=== PATIENT | male | born 1995 | race Caucasian/White ===

== ENCOUNTER → 2016-05-28 | Outpatient (CLI) | payer BC ==
[~2016-05-28] MED LIST: LEXAPRO 10MG10 MG PO
== END ==
LOC: COL.RAD 07:28
DX: R10.84 Generalized abdominal pain (principal)
CPT/HCPCS: Q9967

== ENCOUNTER → 2018-07-03 | Outpatient (CLI) | payer OTHER ==
[~2018-07-03] MED LIST changes: +ALDACTONE 25MG25 M1 PO; +ESTRACE2 MG PO; +LAMICTAL 25MG T25 MG PO; +LEXAPRO20 MG PO; +PRILOSEC 20MG20 MG PO
== END ==
LOC: BHSO 13:09
DX: F31.81 Bipolar II disorder (principal)

== ENCOUNTER → 2018-09-04 | Outpatient (CLI) | payer OTHER | LOC: BHSO 14:00 | DX: F31.81 Bipolar II disorder (principal) | CPT/HCPCS: G0463 ==

== ENCOUNTER → 2018-10-15 | Outpatient (CLI) | payer OTHER ==
[~2018-10-15] MED LIST changes: +LAMICTAL 100MG100 MG PO; +REXULTI0.5 MG PO
== END ==
LOC: BHSO 13:16
DX: F31.81 Bipolar II disorder (principal)
CPT/HCPCS: G0463

== ENCOUNTER → 2018-11-13 | Outpatient (CLI) | payer OTHER | LOC: BHSO 08:22 | DX: F31.81 Bipolar II disorder (principal) | CPT/HCPCS: G0463 ==

== ENCOUNTER → 2019-01-04 | Outpatient (CLI) | payer OTHER | LOC: BHSO 10:17 | DX: F31.81 Bipolar II disorder (principal) | CPT/HCPCS: G0463 ==

== ENCOUNTER → 2019-03-22 | Outpatient (CLI) | payer OTHER | LOC: BHSO 13:09 | DX: F31.81 Bipolar II disorder (principal) | CPT/HCPCS: G0463 ==

== ENCOUNTER → 2019-07-08 | Outpatient (CLI) | payer OTHER | LOC: BHSO 09:20 | DX: F41.1 Generalized anxiety disorder (principal) | CPT/HCPCS: G0463 ==